=== PATIENT | male | born 1990 | race African-American/Black ===

== ENCOUNTER 2017-02-21 22:02 | Emergency (ER) | payer SELFPAY | END 2017-02-21 23:10 | disposition home or self-care (01) | LOC: D.ER 22:02 | DX: K02.9 Dental caries, unspecified (principal); S02.5XXA Fracture of tooth (traumatic), initial encounter for closed fracture; X58.XXXA Exposure to other specified factors, initial encounter; Y93.89 Activity, other specified; Y92.89 Other specified places as the place of occurrence of the external cause; K05.10 Chronic gingivitis, plaque induced; K08.89 Other specified disorders of teeth and supporting structures; F17.200 Nicotine dependence, unspecified, uncomplicated ==

== ENCOUNTER 2019-01-18 17:41 | Emergency (ER) | payer SELFPAY ==
[~2019-01-18] VITALS: Ht 172.7 cm; Wt 88.5 kg
[2019-01-18 17:45] VITALS: Ht 172.7 cm; Wt 88.5 kg
[2019-01-18] MEDS ORDERED: STERAPRED 5MG 125 MG PO (17:47)
[2019-01-18] MEDS ORDERED: ALBUTEROL SULF8.5 GM INH (17:47)
[2019-01-18] MEDS ORDERED: TORADOL10 MG PO (19:53)
[2019-01-18 20:21] VITALS: BP 115/86
== END 2019-01-18 20:24 | disposition home or self-care (01) ==
LOC: D.ER 17:41
DX: M25.552 Pain in left hip (principal); Z91.81 History of falling

== ENCOUNTER 2020-03-09 15:23 | Emergency (ER) | payer SELFPAY ==
[~2020-03-09] VITALS: Ht 172.7 cm; Wt 86.4 kg
[~2020-03-09 15:23] MED LIST: ALBUTEROL SULF8.5 GM INH; STERAPRED 5MG 125 MG PO; TORADOL10 MG PO
[2020-03-09 15:34] VITALS: BP 132/87; Ht 172.7 cm; Wt 86.4 kg
== END 2020-03-09 16:26 | disposition home or self-care (01) ==
LOC: D.ER 15:23
DX: M54.2 Cervicalgia (principal); V89.2XXA Person injured in unspecified motor-vehicle accident, traffic, initial encounter; Y93.9 Activity, unspecified; Y92.9 Unspecified place or not applicable